=== PATIENT | male | born 1945 | race Caucasian/White ===

== ENCOUNTER 2023-02-19 13:18 | Outpatient (CLI) | payer OTHER | END 2023-02-19 13:31 | disposition home or self-care (01) | LOC: RAD 13:18 | PROVIDERS: ATTEND Internal Medicine Rheumatology | DX: M15.0 Primary generalized (osteo)arthritis (principal); M05.79 Rheumatoid arthritis with rheumatoid factor of multiple sites without organ or systems involvement ==

== ENCOUNTER 2023-03-19 12:40 | Outpatient (CLI) | payer OTHER | END 2023-03-19 12:54 | disposition home or self-care (01) | LOC: MRI 12:40 | PROVIDERS: ATTEND Internal Medicine Rheumatology | DX: M23.301 Other meniscus derangements, unspecified lateral meniscus, left knee (principal); M23.304 Other meniscus derangements, unspecified medial meniscus, left knee | CPT/HCPCS: 73718 ==